=== PATIENT | male | born 1945 | race Caucasian/White ===

== ENCOUNTER 2020-03-14 22:07 | Inpatient (IN) | payer MEDICAID, MEDICARE ==
[~2020-03-14] VITALS: Ht 172.7 cm; Wt 111.1 kg
--- NOTE | 2020-03-14 22:14 | NUR ---
Dr. Reich at bedside for MSE
--- NOTE | 2020-03-14 22:16 | NUR ---
pt BIB RA 90 Pt arrived with saline lock R fA 18 G inserted by the [facility] paramedics; with 1L of NS is running at this time.
[2020-03-14] MEDS ORDERED: IV NORMAL SALINE 1000 ML BAG IV ONE (22:30)
--- NOTE | 2020-03-14 22:32 | NUR ---
pt out of er for xray
[2020-03-14 22:44] LABS: BASOPHILS % (AUTO) 0.2 % (0.0-2.0); EOSINOPHILS % (AUTO) 0.3 % (0.0-7.0); HEMOGLOBIN 12.9 g/dL (12.5-16.3); LYMPHOCYTES # (AUTO) 0.4 K/uL (20.0-40.0); LYMPHOCYTES % (AUTO) 4.2 % (20.5-51.5); MEAN CORPUSCULAR HEMOGLOBIN 29.7 uug (23.8-33.4); MEAN CORPUSCULAR HGB CONC 33 g/dL (32.5-36.3); MEAN CORPUSCULAR VOLUME 89.9 fL (73.0-96.2); MONOCYTES # (AUTO) 0.9 K/uL (2.0-10.0); NEUTROPHILS # (AUTO) 7.2 K/uL (1.8-8.9); NEUTROPHILS % (AUTO) 84.3 % (38.5-71.5); PLATELET COUNT (AUTO) 116 K/uL (152-348); RED BLOOD CELL COUNT(AUTO) 4.34 MIL/uL (4.06-5.63); WHITE BLOOD COUNT (AUTO) 8.5 K/uL (3.6-10.2)
--- NOTE | 2020-03-14 22:44 | NUR ---
pt back from radiology
[2020-03-14 22:58] LABS: CREATININE 1.3 mg/dL (0.6-1.3); POTASSIUM 3.5 mmol/L (3.5-5.1)
[2020-03-14 23:02] LABS: BILIRUBIN,DIRECT 0.2 mg/dL (0.0-0.2); BILIRUBIN,TOTAL 0.5 mg/dL (0.2-1.0); TOTAL PROTEIN, SERUM 6.2 g/dL (6.4-8.2)
[2020-03-14] MEDS ORDERED: FLUT12AE8 IH (23:22)
[2020-03-14] MEDS ORDERED: FOLI0.8T PO (23:22)
[2020-03-14] MEDS ORDERED: CHOL100045 PO (23:22)
[2020-03-14] MEDS ORDERED: APIX2.5T PO (23:22)
[2020-03-14] MEDS ORDERED: ALBU6.7H9 IH (23:22)
[2020-03-14] MEDS ORDERED: TAMS-3 PO (23:29)
[2020-03-14] MEDS ORDERED: CYAN50008 PO (23:29)
[2020-03-14] MEDS ORDERED: SERT50TA PO (23:29)
[2020-03-14] MEDS ORDERED: MULT-1045 PO (23:29)
[2020-03-14] MEDS ORDERED: ATOR20TA PO (23:29)
[2020-03-14] MEDS ORDERED: IRON-16 PO (23:29)
--- NOTE | 2020-03-14 23:37 | NUR ---
Dr. Reich on panel call with Dr. Elkins
[2020-03-14] MEDS ORDERED: ONDANSETRON 4 MG/2 ML VIAL IV PRN (23:45)
[2020-03-14] MEDS ORDERED: MAGNESIUM HYDROXIDE 30 ML LIQUID UDC PO PRN (23:45)
[2020-03-14] MEDS ORDERED: IV NS 1000 ML 1,000 ML IV ONE (23:45)
[2020-03-14] MEDS ORDERED: ACETAMINOPHEN 325 MG TABLET PO PRN (23:45)
[2020-03-14] MEDS ORDERED: Z GUARD REMEDY PASTE 57 GM TUBE TOP PRN (23:45)
[2020-03-14] MEDS ORDERED: ALBUTEROL SULFATE 8 GM HFA.AER.AD IH SCH (23:45)
[2020-03-14] MEDS ORDERED: HYDROCODONE/APAP 5-325MG TABLET PO PRN (23:45)
--- NOTE | 2020-03-14 23:59 | NUR ---
report given to RL Lovelace
[2020-03-15] VITALS (9 sets, daily range): BP systolic 96–145; BP diastolic 42–64
--- NOTE | 2020-03-15 00:45 | NUR ---
Patient is a 75 year old male that has come from the ER via gurney. Patient is A/O x4 well spoken, and cooperative. Patient is on room air and oxygen saturation 97% on arrival. Patient is bradycardic with HR 56, with 1st degree heart block. Blood pressure WNL 114/56. Skin is supple, and without bruising or compromised integrity. Patient currently has an 18g peripheral IV in the right forearm placed by paramedics, patent and flushes well. Patient arrived wearing white t-shirt, khaki pants, black suspenders, fong socks, and black shoes. Patient also arrived with his medications from home. Patient arrived in the ER via rescue ambulance @2216. Patient stated he had new onset weakness and postural dizziness when he went to the bathroom. His blood pressure in the field was 70/30. He received a bolus of 500mL NS by the paramedics, and given another 1000mL NS in the ER. Admitting diagnosis is Syncope, dehydration and Acute Kidney Injury. Patient has a history of asthm and CHF. Current BNP 155. Patient is on COVID-19 PUI. CXR shows minor interstitial prominence.
--- NOTE | 2020-03-15 00:49 | NUR ---
Pt. admitted to [facility]U 3 , under care of Dr. Elkins Belongs List completed. all belongings with pt aa/ox4 no s/s of distress Respirations even and unlabored tranported pt via [facility]
--- NOTE | 2020-03-15 04:00 | NUR ---
Patient has become very bradycardic in the mid 40s with occasional dips to 41bpm. Patient is asymptomatic and easily awoken. Blood pressure 112/52, and SPO2 97%. Will continue to monitor.
[2020-03-15 04:52] LABS: *BILIRUBIN,URIN NEGATIVE (NEGATIVE); *BLOOD, URINE 2+ (NEGATIVE); *CLARITY,URINE SLIGHTLY CLOUDY (CLEAR); *COLOR,URINE YELLOW (YELLOW); *KETONES,URINE NEGATIVE (NEGATIVE); *UROBILINOGEN,URINE 0.2 E.U./dl (NORMAL); LEUKOCYTE ESTERASE ,URINE 2+ (NEGATIVE); NITRITE, URINE POSITIVE (NEGATIVE); PH,URINE 5.5 (5.0-8.0); UGLUCOSE NEGATIVE (NEGATIVE)
[2020-03-15 05:58] LABS: BASOPHILS % (AUTO) 0.3 % (0.0-2.0); EOSINOPHILS % (AUTO) 0.2 % (0.0-7.0); HEMATOCRIT 36.5 % (36.7-47.1); HEMOGLOBIN 12.2 g/dL (12.5-16.3); LYMPHOCYTES # (AUTO) 0.7 K/uL (20.0-40.0); LYMPHOCYTES % (AUTO) 9.5 % (20.5-51.5); MEAN CORPUSCULAR HGB CONC 33 g/dL (32.5-36.3); MEAN CORPUSCULAR VOLUME 89.9 fL (73.0-96.2); MONOCYTES # (AUTO) 0.7 K/uL (2.0-10.0); MONOCYTES % (AUTO) 10.6 % (0.0-11.0); NEUTROPHILS # (AUTO) 5.5 K/uL (1.8-8.9); NEUTROPHILS % (AUTO) 79.4 % (38.5-71.5); PLATELET COUNT (AUTO) 109 K/uL (152-348); RED BLOOD CELL COUNT(AUTO) 4.06 MIL/uL (4.06-5.63); WHITE BLOOD COUNT (AUTO) 6.9 K/uL (3.6-10.2)
[2020-03-15 06:17] LABS: CREATININE 1.1 mg/dL (0.6-1.3); MAGNESIUM 1.6 mg/dL (1.8-2.4); POTASSIUM 3.6 mmol/L (3.5-5.1)
[2020-03-15] MEDS ORDERED: PROVENTIL IH PRN (07:00)
[2020-03-15] MEDS: MAGNESIUM SULFATE/D5W 100 ML IV SCH ×2 (07:52→08:51)
[2020-03-15] MEDS: FOLIC ACID 1 MG TABLET PO SCH (08:09)
[2020-03-15] MEDS: SERTRALINE HCL 50 MG TABLET PO SCH (08:09)
[2020-03-15 08:11] LABS: BACTERIA,URINE MODERATE /HPF (NONE SEEN); SQUAMOUS EPITHELIAL CELL,UR MODERATE /HPF (NONE SEEN)
[2020-03-15] MEDS: ELIQUIS 2.5 MG PO SCH ×2 (08:49→20:21)
[2020-03-15] MEDS: CYANOCOBALAMIN 1,000 MCG TABLET PO SCH (08:49)
[2020-03-15] MEDS: levoFLOXacin 500 MG/D5W 500 MG in PREMIXED 1 EACH IV SCH (08:49)
[2020-03-15] MEDS: MULTIVIT, IRON, MIN NO. 8, FA TABLET PO SCH (08:50)
[2020-03-15] MEDS: CHOLECALCIFEROL 1,000 UNIT TABLET PO SCH (08:50)
[2020-03-15] MEDS ORDERED: APIXABAN 5 MG TABLET PO SCH (09:00)
[2020-03-15] MEDS ORDERED: MULTIVITAMINS,THERAPEUTIC TABLET PO SCH (09:00)
--- NOTE | 2020-03-15 09:39 | NUR ---
Attending Leandro Khan in the unit to see and examine pt.
--- NOTE | 2020-03-15 09:40 | NUR ---
Cardiology services, Dr. Coles in the unit to see and examine patient.
[2020-03-15] MEDS ORDERED: ALBUTEROL SULFATE 8 GM HFA.AER.AD IH PRN (10:30)
--- NOTE | 2020-03-15 14:48 | NUR ---
Telephone report given to SHARRI Clayton who will continue with care plan.
--- NOTE | 2020-03-15 15:22 | NUR ---
pt received from [facility] via wheel chair in stable condition
--- NOTE | 2020-03-15 19:30 | NUR ---
patient received in bed watching tv AAOX3. no s/s of acute distress noted. v/s stable. on RA sat at 100%. denies any SOB or pain at this time. PIV in tact and patent. patient informed to call health care staff to assist to bathroom and acknowledged that he would due to history. will attend to needs and administer required medication. safety measures in place. will continue to monitor and assess.
[2020-03-15] MEDS: IV NS 1000 ML 1,000 ML IV PRN (20:18)
[2020-03-15] MEDS ORDERED: ATORVASTATIN 20 MG TABLET PO SCH (21:00)
--- NOTE | 2020-03-16 05:38 | NUR ---
Patient is AAOx3. Verbally responsive and able to make his needs known. Slept comfortably throughout the night. No significant acute changes during this shift. All medications due administered as ordered and tolerated well with no ASE. Denies pain or discomfort. RFA PIV intact and patent. All patient needs attended and met. Safety measures in place. Call light and all frequently used items within patient reach. Will continue to monitor and assess until care is rendered to oncoming morning nurse.
[2020-03-16 05:46] VITALS: BP 135/64
[2020-03-16 06:42] LABS: POTASSIUM 4.1 mmol/L (3.5-5.1)
[2020-03-16 06:54] LABS: BASOPHILS % (AUTO) 0.3 % (0.0-2.0); EOSINOPHILS # (AUTO) 0.2 K/uL (0.0-0.7); EOSINOPHILS % (AUTO) 2.6 % (0.0-7.0); HEMOGLOBIN 12.9 g/dL (12.5-16.3); LYMPHOCYTES # (AUTO) 1.3 K/uL (20.0-40.0); MEAN CORPUSCULAR HEMOGLOBIN 29.9 uug (23.8-33.4); MEAN CORPUSCULAR HGB CONC 33 g/dL (32.5-36.3); MEAN CORPUSCULAR VOLUME 90.5 fL (73.0-96.2); MONOCYTES # (AUTO) 0.9 K/uL (2.0-10.0); MONOCYTES % (AUTO) 13.8 % (0.0-11.0); NEUTROPHILS # (AUTO) 4.4 K/uL (1.8-8.9); NEUTROPHILS % (AUTO) 64.3 % (38.5-71.5); PLATELET COUNT (AUTO) 122 K/uL (152-348); RED BLOOD CELL COUNT(AUTO) 4.32 MIL/uL (4.06-5.63); WHITE BLOOD COUNT (AUTO) 6.9 K/uL (3.6-10.2)
--- NOTE | 2020-03-16 08:45 | NUR ---
Received patient awake, alert and oriented. No signs of respiratory distress noted at this time. Patient is saturating well on room air. IV patent and intact on right forearm 18 gauge. Safety precaution in place, bed in the lowest position and locked with the call light and patient belongings within reach. Will continue to observe and monitor.
[2020-03-16] MEDS: IV NS 1000 ML 1,000 ML IV PRN (09:51)
[2020-03-16] MEDS: CHOLECALCIFEROL 1,000 UNIT TABLET PO SCH (09:54)
[2020-03-16] MEDS: SERTRALINE HCL 50 MG TABLET PO SCH (09:55)
[2020-03-16] MEDS: MULTIVIT, IRON, MIN NO. 8, FA TABLET PO SCH (09:55)
[2020-03-16] MEDS: CYANOCOBALAMIN 1,000 MCG TABLET PO SCH (09:55)
[2020-03-16] MEDS: FOLIC ACID 1 MG TABLET PO SCH (09:55)
[2020-03-16] MEDS: ELIQUIS 2.5 MG PO SCH (09:58)
--- NOTE | 2020-03-16 10:00 | NUR ---
PATIENT WAS SEEN AND EXAMINED BY PHYSICAL THERAPY FOR AMBULATION ABLE TO AMBULATE WITH SBA IVF REMAINS IN PROGRESS ORDERED WITH NO S/S OF INFILTERATION ON SITE CALL LIGHTS AND PERSONAL BELONGINGS PLACED WITHIN EASY REACH MADE COMFORTABLE WILL CONTINUE TO OBSERVE.
[2020-03-16] MEDS: levoFLOXacin 500 MG/D5W 500 MG in PREMIXED 1 EACH IV SCH (10:33)
[2020-03-16] MEDS ORDERED: LEVO500T2 PO (11:39)
[2020-03-16] MEDS ORDERED: IV NS 1000 ML 500 ML IV ONE (11:45)
[2020-03-16 11:47] VITALS: BP 132/58
--- NOTE | 2020-03-16 12:00 | NUR ---
PATIENT SEEN AND EXAMINED BY RAVINDER COYLE HARDENING MACHINE OPERATOR HELPER WITH ORDER TO DISCHARGE PATIENT HOME TODAY AFTER HE RECEIVED A BOLUS NS BAG OF 500 AND NOTED.
[2020-03-16] MEDS ORDERED: IV NORMAL SALINE 500 ML IV PRN (13:00)
[2020-03-16 15:42] VITALS: BP 115/61
--- NOTE | 2020-03-16 16:21 | NUR ---
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
--- NOTE | 2020-03-16 16:45 | NUR ---
Patient prepared for discharge , all medications and belongings are with him. Removed his IV and educated patient about the proper measure to take when on blood thinners. Extra gauge and tape placed on the IV removal site. Patient is stable and release in private vehicle with his brother Eulalio.
== END 2020-03-16 16:45 | disposition home or self-care (01) | DRG 463 ==
LOC: ER 22:07 → CCU 03-15 00:16 → MEDSURG3 03-15 15:10
PROVIDERS: ADMIT Nurse Practitioner Acute Care; ATTEND Registered Nurse
DX: N39.0 Urinary tract infection, site not specified (principal); E86.0 Dehydration; N17.0 Acute kidney failure with tubular necrosis; E44.1 Mild protein-calorie malnutrition; I50.32 Chronic diastolic (congestive) heart failure; G62.9 Polyneuropathy, unspecified; Z86.718 Personal history of other venous thrombosis and embolism; E83.42 Hypomagnesemia; E66.9 Obesity, unspecified; R53.1 Weakness; R55 Syncope and collapse; R00.1 Bradycardia, unspecified; D64.9 Anemia, unspecified; J45.909 Unspecified asthma, uncomplicated; E88.09 Other disorders of plasma-protein metabolism, not elsewhere classified; R73.9 Hyperglycemia, unspecified; B96.4 Proteus (mirabilis) (morganii) as the cause of diseases classified elsewhere; Z68.37 Body mass index [BMI] 37.0-37.9, adult
CPT/HCPCS: 36415; 70030-TC; 71045; 83605; 83735; 84100; 85025; 85730; 87040; 87077; 87086; 93005; 93307; A4663; G0378; J1956; J3475; J7030; J7040; U0003-CS